=== PATIENT | male | born 1980 | race Caucasian/White ===

== ENCOUNTER → 2019-02-28 | Outpatient (CLI) | payer OTHER | LOC: RAD 08:26 | DX: R07.81 Pleurodynia (principal) ==

== ENCOUNTER → 2021-10-17 | Outpatient (CLI) | payer OTHER | LOC: LAB 09:56 | DX: J01.90 Acute sinusitis, unspecified (principal); H92.03 Otalgia, bilateral; H66.92 Otitis media, unspecified, left ear ==